=== PATIENT | female | born 1980 | race Caucasian/White ===

== ENCOUNTER → 2021-08-21 | Outpatient (CLI) | payer BC ==
[~2021-08-21] MED LIST: IOPAMIDOL 370 MG/ML 200 ML INFUS..BTL INJ ONE; METOPROLOL TARTRATE INJ 1 MG/ML VIAL ONE; NITROGLYCERIN 0.4 MG SUBL ONE; SODIUM CHLORIDE 0.9% 100 ML ONE
[2021-08-21 09:09] LABS: CREATININE, SERUM 0.82 mg/dL (0.57-1.11)
== END ==
LOC: CT 08:12
PROVIDERS: ATTEND Family Medicine
DX: R07.9 Chest pain, unspecified (principal); R94.39 Abnormal result of other cardiovascular function study
CPT/HCPCS: 36415; 75574; 81025; 82565; 84520; J7050; Q9967

== ENCOUNTER 2022-04-29 14:15 | Emergency (ER) | payer BC ==
[~2022-04-29] VITALS: Ht 165.1 cm; Wt 74.8 kg
== END 2022-04-29 21:15 | disposition home or self-care (01) ==
LOC: ER 15:13
DX: M79.661 Pain in right lower leg (principal); R60.9 Edema, unspecified
CPT/HCPCS: 93971; 99283